=== PATIENT | female | born 1990 | race Two or more races ===

== ENCOUNTER → 2024-09-02 | Outpatient (CLI) | payer MEDICAID, SELFPAY ==
[2024-09-02 09:16] LABS: Basophils % (Auto) 0 % (0-2.5); Eosinophils # (Auto) 0.1 Thou/mm3 (0.0-0.5); Eosinophils % (Auto) 1 % (0-10); Hematocrit 39.8 % (36.0-46.0); Hemoglobin 13.7 g/dL (12.0-16.0); Immature Granulocytes % (Auto) 0 % (0-0); Immature Granulocytes Auto 0.04 Thou/mm3 (0.00-0.00); Lymphocytes # (Auto) 2.5 Thou/mm3 (1.0-4.8); Lymphocytes % (Auto) 25 % (10-50); Mean Corpuscular HGB Conc 34.4 g/dl (31.0-37.0); Mean Corpuscular Hemoglobin 29.8 pg (25.0-35.0); Mean Corpuscular Volume 87 fL (80-100); Monocytes # (Auto) 0.8 Thou/mm3 (0.0-0.8); Monocytes % (Auto) 8 % (0-12); Neutrophils # (Auto) 6.5 Thou/mm3 (1.8-7.7); Neutrophils % (Auto) 65 % (37-80); Nucleated Red Blood Cell % 0 /100 WBC (0); Platelet Count 223 Thou/mm3 (140-440); RDW Standard Deviation 40.3 fL (36.4-46.3)
[2024-09-02 09:32] LABS: INR 0.9 (0.9-1.3); Partial Thromboplastin Time 24.5 Seconds (22.0-36.0); Prothrombin Time 10.3 Seconds (9.0-12.2)
[2024-09-02 09:36] LABS: Alanine Aminotransferase 42 U/L (10-49); Albumin, Serum 4.4 gm/dL (3.5-5.0); Albumin/Globulin Ratio 1.7 (1.2-2.2); Alkaline Phosphatase 214 U/L (46-116); Anion Gap 11 (7-16); Aspartate Amino Transferase 23 U/L (0-34); BUN/Creatinine Ratio 12 Ratio (12-20); Bilirubin,Total 0.5 mg/dL (0.3-1.2); Blood Urea Nitrogen 7 mg/dL (9-23); Calcium 9.8 mg/dL (8.3-10.6); Calcium (Corrected) 9.8 mg/dL (8.5-10.1); Carbon Dioxide 21.5 mMol/L (20.0-31.0); Chloride 103 mMol/L (98-107); Creatinine (Component) 0.6 mg/dL (0.6-1.3); Globulin 2.6 gm/dL (2.3-3.5); Glucose 75 mg/dL (74-106); Osmolality,Calculated 267 (275-295); Sodium 135 mMol/L (136-145); eGFR > 60 See Note
[2024-09-02 09:53] LABS: Syphilis Nonreactive (Nonreactive)
== END | disposition home or self-care (01) ==
PROVIDERS: PCP Family Medicine; Referring Provider Specialist; Visit Provider Specialist
DX: Z34.83 Encounter for supervision of other normal pregnancy, third trimester (principal)
CPT/HCPCS: 36415; 80053; 85025; 85610; 85730; 86780; 86850; 86900; 86901

== ENCOUNTER 2024-09-03 10:19 | Inpatient (IN) | payer MEDICAID, SELFPAY ==
--- NOTE | 2024-08-30 16:08 | ESHP_ITS ---
RE: ADITHYA DO : 1990 DATE OF ADMISSION: 09/03/2024 HISTORY OF PRESENT ILLNESS: This is a 33-year-old 2, para 1-0-0-1 with due date of 09/08 with intrauterine at 39 weeks and two days on 09/03, who presents for repeat delivery and bilateral tubal ligation. She has occasional contraction. She reports normal movement. She denies any leaking. Her was a result of IVF . Otherwise, she has had no complications during her . ALLERGIES: NO KNOWN DRUG ALLERGIES. MEDICATIONS: 1. Baby aspirin 81 mg 1 p.o. daily. 2. vitamin 1 p.o. daily. FAMILY HISTORY: Mother has hypertension. OBSTETRIC HISTORY: 2018, 40 weeks, delivery, 7 pound 2 ounce female. No complications. PAST SURGICAL HISTORY: delivery in 2018. PHYSICAL EXAMINATION: VITAL SIGNS: Blood pressure 132/77, heart rate 88, respirations 18, temperature is 98.2, weight 200 pounds. HEENT: Oropharynx and sclerae clear. LUNGS: Clear to auscultation bilaterally. HEART: Regular rate and rhythm. ABDOMEN: Gravid, term size. Old Pfannenstiel scar noted. EXTREMITIES: Nontender. SKIN: No gross rashes or lesions. NEUROLOGIC: No focal deficits. ASSESSMENT: Intrauterine at 39 weeks and three days on 09/03. Previous delivery. Elect to repeat delivery in multiparity, desires voluntary sterilization. PLAN: Repeat delivery and bilateral tubal ligation. Informed consent was obtained. The patient was made aware of the risks, complications, alternatives, and benefits of the proposed procedure and she agrees. She is aware of the failure rate and increased risk of tubal ectopic gestation if occurs. She is aware that vasectomy has a lower failure rate and she is aware of the reversal methods of control and she declines those options. DT: 12:39:03 TT: 16:07:00 Ref: [id number] - TID: [id number]
[2024-09-03] VITALS (38 sets, daily range): BP systolic 93–175; BP diastolic 66–112; PULSE 88–118; RESP 15–26; TEMP 36.6–37.1; O2SAT 96–99
[2024-09-03 12:07] LABS: Collection Type, Urine Clean Catch
[2024-09-03 12:10] LABS: Basophils % (Auto) 0 % (0-2.5); Eosinophils % (Auto) 0 % (0-10); Hematocrit 39.8 % (36.0-46.0); Hemoglobin 13.7 g/dL (12.0-16.0); Immature Granulocytes % (Auto) 1 % (0-0); Immature Granulocytes Auto 0.06 Thou/mm3 (0.00-0.00); Lymphocytes % (Auto) 26 % (10-50); Mean Corpuscular HGB Conc 34.4 g/dl (31.0-37.0); Mean Corpuscular Hemoglobin 29.8 pg (25.0-35.0); Mean Corpuscular Volume 87 fL (80-100); Monocytes # (Auto) 0.8 Thou/mm3 (0.0-0.8); Monocytes % (Auto) 7 % (0-12); Neutrophils # (Auto) 7.5 Thou/mm3 (1.8-7.7); Neutrophils % (Auto) 66 % (37-80); Nucleated Red Blood Cell % 0 /100 WBC (0); Platelet Count 220 Thou/mm3 (140-440); RDW Standard Deviation 40.3 fL (36.4-46.3); Red Blood Count 4.59 Miln/mm3 (4.00-5.20); White Blood Count 11.4 Thou/mm3 (3.6-11.0)
[2024-09-03 12:13] LABS: Bilirubin,Urine Negative (Negative); Blood,Urine Negative (Negative); Clarity,Urine Clear (Clear/Hazy); Color,Urine Lt-Yellow (Lt Yel-Yel); Glucose, Urine Negative (Negative); Ketones,Urine 1+ (Negative); Leukocyte Esterase,Urine Negative (Negative); Nitrite,Urine Negative (Negative); PH,Urine 6.5 (5.0-7.0); Protein,Urine Negative (Neg - Trace); RBC,Urine 3 /hpf (0-3); Specific Gravity,Urine 1.013 (1.001-1.035); Squamous Epithelial Cell,Urine 1 /hpf (0-5); Urobilinogen,Urine Negative mg/dL (0.0-1.0); WBC,Urine < 1 /hpf (0-5)
[2024-09-03] MEDS: ceFAZolin/D5W 2 GM IV 2 GM/100 ML BAG IV (12:16)
[2024-09-03] MEDS: CITRIC ACID/SODIUM CITR 15 ML UDC (BICITRA) 30 ML PO (12:17)
[2024-09-03] MEDS: FAMOTIDINE INJ 10 MG/ML VIAL 2 ML 20 MG IV (12:17)
[2024-09-03 12:20] LABS: Creatinine,Random Urine 46 mg/dL (30-125); Protein Total, Random Urine 12 mg/dL (1-14)
[2024-09-03 12:30] LABS: Partial Thromboplastin Time 23.8 Seconds (22.0-36.0); Prothrombin Time 10.6 Seconds (9.0-12.2)
[2024-09-03 12:32] LABS: Fibrinogen 674 mg/dL (175-375)
[2024-09-03 12:38] LABS: Alanine Aminotransferase 42 U/L (10-49); Albumin, Serum 4.5 gm/dL (3.5-5.0); Albumin/Globulin Ratio 1.7 (1.2-2.2); Alkaline Phosphatase 221 U/L (46-116); Anion Gap 13 (7-16); Aspartate Amino Transferase 30 U/L (0-34); BUN/Creatinine Ratio 14 Ratio (12-20); Bilirubin,Total 0.6 mg/dL (0.3-1.2); Blood Urea Nitrogen 7 mg/dL (9-23); Calcium 9.7 mg/dL (8.3-10.6); Calcium (Corrected) 9.7 mg/dL (8.5-10.1); Carbon Dioxide 19.2 mMol/L (20.0-31.0); Chloride 102 mMol/L (98-107); Creatinine (Component) 0.5 mg/dL (0.6-1.3); Estimated Creatinine Clearance 232.6 mL/min (>60); Globulin 2.7 gm/dL (2.3-3.5); Glucose 75 mg/dL (74-106); LDH (Lactate Dehydrogenase) 204 U/L (120-246); Osmolality,Calculated 265 (275-295); Potassium 3.7 mMol/L (3.4-5.1); Sodium 134 mMol/L (136-145); Total Protein 7.2 gm/dL (5.7-8.2); Uric Acid 4.6 mg/dL (3.1-7.8); eGFR > 60 See Note
[2024-09-03 12:49] LABS: Syphilis Nonreactive (Nonreactive)
[2024-09-03] MEDS: OXYTOCIN in NS 20 units 20 UNIT/1,000 ML BAG 125 UNIT IV (16:16)
--- NOTE | 2024-09-03 19:32 | OBDSUM_ITS ---
Data ([place]) Data Hx Section: No : 2 Para: 1 Term: 1 : 0 : 0 Delivery Data ([place] Labor Data ROM Date: 09/03/24 ROM Time: 13:08 Rupture Type: AROM Delivery Data EDC: 09/07/24 EDC calculated by:: LMP/early US confirmation Delivery Date: 09/03/24 Delivery Time: 13:09 Gestational age (weeks): 39 Gestational age (days): 3 Placenta Delivery Date: 09/03/24 Placenta Delivery Time: 13:10 Delivered by: Tyson Wallace Delivery nurse: Carline Rowan Delivery Method Delivery: Delivery Type: Repeat Presentation: Vertex Position: OA Anesthesia Type Primary Anesthesia: Spinal Placenta Placenta Delivery: Manual Cord Sample: Cord Blood Obtained EBL Estimated blood loss (ml): 600 Additional Procedures Bilateral salpingectomy Left ovarian cystectomy Complications Complications: None [place] Data ([place] Data Infant Gender: Male Weight Grams: 3235 1 Minute Total: 9 5 Minute Total: 9
--- NOTE | 2024-09-03 19:32 | PD.LDDS ---
DS: Providers Provider Date of admission: 09/03/24 10:19 Primary care physician: Physician No Primary/Family Admitting Provider: Tyson Wallace MD Attending Provider on Admission: Tyson Wallace MD Consults: 09/03/24 15:20 Referral Routine Comment: Attending Provider on DC: Tyson Wallace MD Discharging Provider: Tyson Wallace MD DS: Diagnosis Problem List Completed Was Problem List Reviewed/Reconciled?: Yes Summary/Hosp Course Peripartum Data Procedures: Procedures Operation Date: 09/03/24 12:45 Actual Procedure Side Surgeon p w/tubal OB Not Applicable Tyson Wallace MD Time Spent with Patient Time attestation: Total time spent providing and/or coordinating discharge services: Exam Vital Signs Temp Pulse Resp BP Pulse Ox O2 Del Method 98.5 F 99 18 121/76 99 Room Air 09/03/24 16:40 09/03/24 16:30 09/03/24 16:30 09/03/24 16:30 09/03/24 16:30 09/03/24 16:30 Discharge Plan Plan Patient Disposition: HOME (Self Care) Patient condition on transfer: Stable Prescriptions/Referrals Prescriptions/Med Rec: New ibuprofen 600 mg tablet 600 mg PO Q6H PRN (Reason: pain) Qty: 30 0RF Continued prenat.vits,libertad,eaj-jwfj-tqegx [ Vitamin] Tablet 1 tab PO QDAY Referrals: No Primary/Family,Physician [Primary Care Provider] - Patient/Caregiver Discharge Instructions Discharge Activity: activity as tolerated Other Discharge Activity Instructions:: She already has a Rx for [place]. Education Materials: C Section Dc Print Language: Turkmen Stand Alone Forms: Lani Award Info., Patient Portal Info Letter Discharge Order Discharge Orders: Discharge (Routine); Ordered 09/05/24 Ordered By: Tyson Wallace Planned Discharge Date 09/05/24
[2024-09-03 21:11] LABS: Basophils % (Auto) 0 % (0-2.5); Eosinophils % (Auto) 0 % (0-10); Hematocrit 34.4 % (36.0-46.0); Hemoglobin 12.3 g/dL (12.0-16.0); Immature Granulocytes % (Auto) 0 % (0-0); Immature Granulocytes Auto 0.07 Thou/mm3 (0.00-0.00); Lymphocytes # (Auto) 1.8 Thou/mm3 (1.0-4.8); Lymphocytes % (Auto) 11 % (10-50); Mean Corpuscular HGB Conc 35.8 g/dl (31.0-37.0); Mean Corpuscular Hemoglobin 30.5 pg (25.0-35.0); Mean Corpuscular Volume 85 fL (80-100); Monocytes # (Auto) 0.8 Thou/mm3 (0.0-0.8); Monocytes % (Auto) 5 % (0-12); Neutrophils # (Auto) 14.2 Thou/mm3 (1.8-7.7); Neutrophils % (Auto) 84 % (37-80); Nucleated Red Blood Cell % 0 /100 WBC (0); Platelet Count 167 Thou/mm3 (140-440); RDW Standard Deviation 39.1 fL (36.4-46.3); Red Blood Count 4.03 Miln/mm3 (4.00-5.20); White Blood Count 16.8 Thou/mm3 (3.6-11.0)
[2024-09-04 00:04] VITALS: BP 102/67; PULSE 102; RESP 24; TEMP 37.1; O2SAT 97
[2024-09-04] MEDS: KETOROLAC INJ 30 MG/ML VIAL IVP ×2 (00:10→07:05)
[2024-09-04 03:14] VITALS: BP 109/76; PULSE 91; RESP 23; TEMP 36.7; O2SAT 96
--- NOTE | 2024-09-04 05:18 | ESPR_ITS ---
RE: ADITHYA DO : 1990 DATE OF SERVICE: 09/04/2024 SUBJECTIVE: Postoperative day #1, the patient denies any problem or complaints. She is voiding. She is ambulating. She is tolerating diet. She is passing flatus. She denies any excessive vaginal bleeding. She denies any dizziness or lightheadedness. She denies any chest pain, palpitations, shortness of breath or lower extremity pain. OBJECTIVE: Vital Signs: Blood pressure 102/67, heart rate 102, respirations 24, temperature 98.8, pulse ox is 97% on room air. Lungs: Clear to auscultation bilaterally. Heart: Regular rate and rhythm. Abdomen: Dressing is dry and intact. Fundus is firm. Extremities: Nontender. LABORATORY DATA: Hemoglobin pre-delivery is 13.7, post-delivery is 12.3. ASSESSMENT: Postop day #1 status post delivery and bilateral salpingectomy. PLAN: Remove dressing. Discontinue IV. Encourage ambulation. support. Possible discharge home tomorrow. DT: 04:25:19 TT: 05:18:00 Ref: [id number] - TID: [id number]
[2024-09-04 08:40] VITALS: BP 129/88; PULSE 89; RESP 17; TEMP 36.7; O2SAT 97
[2024-09-04 12:05] VITALS: BP 112/71; PULSE 91; RESP 18; TEMP 36.4; O2SAT 96
[2024-09-04] MEDS: IBUPROFEN TAB 400 MG TABLET 800 MG PO ×2 (14:52→22:53)
[2024-09-04 20:10] VITALS: BP 99/65; PULSE 99; RESP 16; TEMP 36.9; O2SAT 96
[2024-09-05 03:30] VITALS: BP 103/69; PULSE 89; RESP 16; TEMP 36.8; O2SAT 98
[2024-09-05] MEDS: IBUPROFEN TAB 400 MG TABLET 800 MG PO (08:32)
--- NOTE | 2024-09-05 08:44 | ESPR_ITS ---
RE: ADITHYA DO : 1990 DATE OF SERVICE: 09/05/2024 S: Postop day #2, the patient denies any problem or complaints. She is voiding. She is ambulating. She is tolerated diet. She is passing flatus. She denies any excessive vaginal bleeding. She denies any dizziness or lightheadedness. She denies any chest pain, palpitations, shortness of breath or lower extremity pain. She denies any depression or anxiety. O: Vital Signs: Blood pressure is 103/69, heart rate 89, respirations 16, temperature 98.3, and pulse oximetry is 98% on room air. Lungs: Clear to auscultation bilaterally. Heart: Regular rate and rhythm. Abdomen: Incision clear and intact. Fundus is firm. Extremities: Nontender. LABORATORY DATA: Hemoglobin pre-delivery is 13.7 and post delivery is 12.3. A: Postop day #2, status post delivery and bilateral salpingectomy. P: Discharge home. Discharge instructions given. Follow up in the office in one week. DT: 07:42:12 TT: 08:43:00 Ref: [id number] - TID: [id number]
--- NOTE | 2024-09-06 08:10 | ESOP_ITS ---
RE: ADITHYA DO : 1990 DATE OF OPERATION: 09/03/2024 PREOPERATIVE DIAGNOSES: 1. Intrauterine at 39 weeks and 3 days. 2. Previous delivery. 3. Elects to repeat delivery. 4. Multiparity, desires voluntary sterilization. 5. IVF . POSTOPERATIVE DIAGNOSES: 1. Intrauterine at 39 weeks and 3 days. 2. Previous delivery. 3. Elects to repeat delivery. 4. Multiparity, desires voluntary sterilization. 5. IVF . 6. Endometriosis. 7. Adenomyosis. 8. Left ovarian cyst. PROCEDURE PERFORMED: Repeat low transverse section via Pfannenstiel skin incision and bilateral salpingectomy with left ovarian cystectomy. SURGEON: Tyson Wallace DO GASKET WINDER: YORDAN Lei ANESTHESIA: Spinal. ANESTHESIOLOGIST: Justin Miranda CRNA ESTIMATED BLOOD LOSS: 600 mL COMPLICATIONS: None. COUNTS: Correct. PATHOLOGY: 1. Left and right fallopian tubes. 2. Left ovarian cyst. FINDINGS: Live male infant cephalic presentation, clear amniotic fluid, Apgars, see RN notes, placenta removed completely intact. Uterus with myometrial hypertrophy, firm, intramural myoma noted at the anterior fundal aspect of the uterus measuring 2 x 3 cm. Both ovaries contain superficial vesicular endometriotic implants and both uterosacral ligaments contain superficial vesicular endometriotic implants. DESCRIPTION OF PROCEDURE: After appropriate informed consent was obtained and the patient was made aware of the risks, complications, alternatives, and benefits of the proposed procedure, she was taken to the operating room where she underwent induction of spinal anesthesia. She was placed in the dorsal supine position with leftward tilt. She was prepped and draped in usual sterile fashion. A timeout was performed. A Pfannenstiel skin incision was made with the scalpel, carried through to the underlying layer of fascia with the Bovie. The fascia was nicked to the midline incision extending bilaterally with the Bovie. The inferior aspect of the fascia incision was grasped with Marcia clamped, and elevated. The underlying rectus muscle was dissected off with the Bovie. The rectus muscles were at the midline and the peritoneum identified between two Galvin clamps and entered sharply with the Metzenbaum scissors. The incision was extended superiorly and inferiorly with good visualization of the bladder. The bladder blade was then inserted. The vesicouterine peritoneum incised transversely and bladder flap created digitally. The bladder blade was reinserted in the lower uterine segment and incised in the transverse fascia with the scalpel. The incision was extended bilaterally digitally. The infant's head delivered, the mouth and nose suctioned with the bulb suction. Shoulder and body delivered atraumatically. The cord was clamped and cut. The infant sent off to awaiting pediatric staff. Cord blood and gases were sent. The placenta was then removed manually. The uterus was exteriorized and cleared of all clots and debris. The uterine incision was repaired with #1-0 chromic catgut suture in a running locking fashion. A second layer of same suture was used to imbricate the first layer and obtained excellent hemostasis. Attention was then turned to the right fallopian tube, which was removed using the Enseal X1 Large Jaw and specimen sent to Pathology. Attention was then turned to the left fallopian tube, which was removed in two segments using the Enseal X1 Large Jaw and specimen sent to Pathology. There was a 1 x 1 cm left ovarian cyst, which was removed with the Enseal X1 Large Jaw and hemostasis was achieved. There was no bleeding of the adnexa at the end of the salpingectomy. Both adnexa were re-visualized and found to be hemostatic and the lower uterine segment was hemostatic. The peritoneum was closed with 0 chromic catgut suture in running fashion. The muscle was closed with the 0 chromic catgut suture in running fashion. The fascia was closed with 0 Vicryl beginning at each angle ending in center in running fashion. Subcutaneous tissue was irrigated from the normal saline solution, found to be hemostatic, closed with 2-0 chromic catgut suture in running fashion. The skin was closed with 4-0 Monocryl. A Dermabond Prineo dressing was applied. A sterile pressure dressing was applied. She tolerated the procedure well. Counts were correct. I discussed with the patient and her the nature of her condition, the intraoperative findings, expectation for recovery. All questions answered. DT: 13:45:02 TT: 20:54:00 Ref: [id number] - TID: [id number]
== END 2024-09-05 14:04 | disposition home or self-care (01) | DRG 539 ==
LOC: S4SX 11:04 → S4NX 12:39
PROVIDERS: Admitting Provider Specialist; Visit Provider Specialist
PROC: 0UL70ZZ Occlusion of Bilateral Fallopian Tubes, Open Approach (ICD-10-PCS; CPT 59514; principal; 2024-09-03 12:30)
DX: O34.211 Maternal care for low transverse scar from previous cesarean delivery (principal); Z30.2 Encounter for sterilization; Z37.0 Single live birth; N83.202 Unspecified ovarian cyst, left side; O34.83 Maternal care for other abnormalities of pelvic organs, third trimester; N80.03 Adenomyosis of the uterus; Z3A.39 39 weeks gestation of pregnancy; O34.13 Maternal care for benign tumor of corpus uteri, third trimester; D25.1 Intramural leiomyoma of uterus
CPT/HCPCS: 36415; 80053; 81001; 82570; 83615; 84156; 84550; 85025; 85384; 85610; 85730; 86780; 86850; 86900; 86901; A4649; J0689; J1100; J1885; J2250; J2274; J2371; J2405; J2590; J3010; J3490; A9270; J0690; J2270